=== PATIENT | male | born 1940 | race Caucasian/White ===

== ENCOUNTER 2021-04-04 04:43 | Emergency (ER) | payer OTHER, MEDICARE ==
[~2021-04-04] VITALS: Ht 175.3 cm; Wt 95.0 kg
[2021-04-04] MEDS ORDERED: WALKERFR (05:19)
--- NOTE | 2021-04-04 05:42 | NUR ---
patients son, Thee, would like to be contacted with update when results are back. [phone]
[2021-04-04 06:25] LABS: GLUCOSE,SYNOVIAL FLUID 103 MG/DL; TOTAL PROTEIN,SYNOVIAL FLUID 4.2 GM/DL
[2021-04-04 06:41] LABS: BASOPHILS # (AUTO) 0.1 X10'3 (0-0.2); BASOPHILS % (AUTO) 0.7 % (0-1); EOSINOPHILS # (AUTO) 0.1 X10'3 (0-0.9); EOSINOPHILS % (AUTO) 1.3 % (0-6); HEMATOCRIT 38.9 % (42.0-52.0); HEMOGLOBIN 13.3 g/dl (14.0-17.9); LYMPHOCYTES # (AUTO) 1.1 X10'3 (1.1-4.8); LYMPHOCYTES % (AUTO) 10.9 % (21-51); MEAN CORPUSCULAR HEMOGLOBIN 28.9 PG (27.0-31.0); MEAN CORPUSCULAR HGB CONC 34.1 g/dL (33.0-36.5); MEAN CORPUSCULAR VOLUME 84.8 FL (78-98); MONOCYTES # (AUTO) 1.4 X10'3 (0-0.9); MONOCYTES % (AUTO) 13.7 % (2-12); NEUTROPHILS # (AUTO) 7.5 X10'3 (1.8-7.7); NEUTROPHILS % (AUTO) 73.4 % (42-75); PLATELET COUNT 292 X10'3 (140-440); RED BLOOD COUNT 4.59 X10'6 (4.70-6.10); RED CELL DISTRIBUTION WIDTH 13.6 % (11.5-14.5); WHITE BLOOD COUNT 10.3 X10'3 (4.5-11.0)
[2021-04-04 06:56] LABS: APPEARANCE,SYNOVIAL FLUID CLOUDY; COLOR,SYNOVIAL FLUID YELLOW; LYMPHOCYTES,SYNOVIAL FLUID 6 % (0-75); MONOCYTES,SYNOVIAL FLUID 2 % (0-0); NEUTROPHILS,SYNOVIAL FLUID 92 % (0-25); SYN RBC 400 /CU MM (0); SYN WBC 9950 /CU MM (0-200)
[2021-04-04] MEDS ORDERED: DOXY100C43 PO (08:11)
[2021-04-04] MEDS ORDERED: HYDR-3965 PO (08:11)
[2021-04-04] MEDS ORDERED: HYDROcodone/acetaminophen 5mg/325mg tablet PO ONE (08:20)
[2021-04-04] MEDS ORDERED: dexamethasone sod phosphate 10mg/ml inj PO STA (08:20)
[2021-04-04] MEDS ORDERED: acetaminophen 325mg tablet PO ONE (08:20)
[2021-04-04 09:43] VITALS: BP 139/73
[2021-04-04 09:50] LABS: SYNOVIAL FLUID CRYSTALS QT NO CRYSTALS SEEN
[2021-04-04] MEDS ORDERED: LIDOcaine 1% W/epiNEPHrine 1:200,000 10ml vial IJ ONE (22:50)
== END 2021-04-04 10:08 | disposition home or self-care (01) ==
LOC: ER 04:44
DX: M25.462 Effusion, left knee (principal); M17.12 Unilateral primary osteoarthritis, left knee; M25.562 Pain in left knee; I10 Essential (primary) hypertension; Z98.890 Other specified postprocedural states
CPT/HCPCS: 20610; 36415; 73564; 82945; 83605; 84145; 84157; 85025; 85651; 86140; 87040; 87070; 87075; 89051; 89060; 99284; J1100

== ENCOUNTER 2023-05-24 08:02 | Emergency (ER) | payer OTHER, MEDICARE ==
[~2023-05-24] VITALS: Ht 172.7 cm; Wt 90.9 kg
[~2023-05-24 08:02] MED LIST: WALKERFR
[2023-05-24 08:36] VITALS: BP 166/93; PULSE 69; TEMP 97.7; O2SAT 98
[2023-05-24] MEDS ORDERED: ketorolac trometh inj. 60 MG/2 ML VIAL IM ONE (11:10)
[2023-05-24 11:20] VITALS: RESP 15
[2023-05-24] MEDS ORDERED: CYCL-1 PO (12:49)
[2023-05-24] MEDS ORDERED: PRED20TA PO (12:49)
== END 2023-05-24 13:08 | disposition home or self-care (01) ==
LOC: ER 08:02
DX: S29.012A Strain of muscle and tendon of back wall of thorax, initial encounter (principal); S40.011A Contusion of right shoulder, initial encounter; I10 Essential (primary) hypertension; X58.XXXA Exposure to other specified factors, initial encounter; Y93.89 Activity, other specified; Y92.89 Other specified places as the place of occurrence of the external cause; Y99.8 Other external cause status
CPT/HCPCS: 73000; 96372; 99284; J1885

== ENCOUNTER 2024-06-14 13:50 | Emergency (ER) | payer OTHER, MEDICARE ==
[~2024-06-14] VITALS: Ht 172.7 cm; Wt 72.6 kg
[~2024-06-14 13:50] MED LIST changes: +CYCL-1 PO
[2024-06-14] MEDS ORDERED: BUPR1FIL20 SL (14:59)
[2024-06-14 15:14] VITALS: BP 137/74; PULSE 74; RESP 16; TEMP 97.4; O2SAT 99
== END 2024-06-14 15:15 | disposition home or self-care (01) ==
LOC: ER 13:51
DX: Z76.0 Encounter for issue of repeat prescription (principal); M25.561 Pain in right knee; M25.562 Pain in left knee; F11.23 Opioid dependence with withdrawal; I10 Essential (primary) hypertension; Z79.899 Other long term (current) drug therapy
CPT/HCPCS: 99283

== ENCOUNTER 2024-07-12 13:11 | Emergency (ER) | payer OTHER, MEDICARE ==
[~2024-07-12] VITALS: Ht 175.3 cm; Wt 84.1 kg
[~2024-07-12 13:11] MED LIST changes: +BUPR1FIL20 SL
[2024-07-12 13:26] VITALS: BP 180/75; PULSE 78; RESP 18; TEMP 97.8; O2SAT 98
[2024-07-12] MEDS ORDERED: BUPR8TAB4 SL (14:27)
== END 2024-07-12 14:47 | disposition home or self-care (01) ==
LOC: ER 13:11
DX: F11.23 Opioid dependence with withdrawal (principal); I10 Essential (primary) hypertension; G25.81 Restless legs syndrome; Z79.899 Other long term (current) drug therapy
CPT/HCPCS: 99281; 99283

== ENCOUNTER 2025-05-28 03:55 | Inpatient (IN) | payer OTHER, MEDICARE ==
[~2025-05-28] VITALS: Ht 172.7 cm; Wt 86.0 kg
--- NOTE | 2025-05-28 04:03 | Physician Documentation ---
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 No obvious trigger provocation. It has a multiple falls throughout the last two months. But has not fallen lately. No palliating factors other than position of comfort. Denies any other symptoms whatsoever. Called the ambulance because he has not been able to ambulate for 18 hours. No concern for tobacco, alcohol or illicit substances use Medication Reconciliation Allergies: Coded Allergies: No Known Allergies (Unverified , 04/04/21) Scheduled Buprenorphine HCl/Naloxone HCl (Buprenorphine-Nalox 8-2Mg Film), 1 STRIP SL Q8H Scheduled PRN Cyclobenzaprine* (Cyclobenzaprine*), 1 TAB PO TID PRN for pain Durable Medical Equipment Walker, Front Wheeled (Walker, Front-wheeled), UNIT, (DME) Past Medical History Past Medical History: Hypertension Past Surgical History: orthopedic surgeries Alcohol Use: None Drug Use: none Review of Systems ROS 10 point review of systems was performed and unless noted above in HPI is negative for acute process/complaint. Physical Exam Physical Exam Physical Exam GENERAL: Awake, alert, oriented, GCS 15, no apparent distress, non-toxic appearing, answers questions, follows commands appropriately. Examined in bed 12. Immediately upon arrival. HEENT: Atraumatic, normocephalic, pupils equal, extraocular muscles intact, sclerae anicteric, mucus membranes moist, oropharynx is clear, no stridor. NECK: supple, full active range of motion, trachea midline, no thyromegaly, no lymphadenopathy, no JVD. CARDIOVASCULAR: regular rate/rhythm, no murmurs/gallops/rubs, Pulses are 2+ in all extremities and symmetric. Capillary refill less than 2 seconds. PULMONARY: Nonlabored, good air movement ,no respiratory distress, speaking in full sentences, clear to auscultation bilaterally, no wheezing, no ronchi, no rales, no accessory muscle use. GASTROINTESTINAL: Soft, non-tender, non-distended, normal active bowel sounds, no organomegaly, no pulsatile masses, no CVA tenderness. NEUROLOGIC: Lucid with normal mental status. Normal facial symmetry. Moves all extremities symmetrically and with purpose. No truncal ataxia. Speech is fluid without evidence of dysarthria or aphasia, no focal deficits appreciated. MUSCULOSKELETAL: There is full range of motion of all extremities. There is no joint pain or joint swelling or joint erythema. There is no muscle pain or tenderness or swelling. EXTREMITIES: warm, well-perfused, no cyanosis, no clubbing, no edema, no acute deformities. Skin: warm, dry, no rashes or lesions, no jaundice, no petechiae orpurpura. No ecchymosis. PSYCHIATRIC: Normal affect, normal insight, normal concentration. Focused exam: [] Range of motion not tested secondary to pain. Neurovascularly intact distally to the knee. No gross deformity. No discoloration. Progress Results/Orders Results/Orders Orders - POLO GROSS DO Cbc/Diff (05/28/25 03:57) ESR (05/28/25 03:57) C-Reactive Protein (05/28/25 03:57) MG (05/28/25 03:57) Monitor (05/28/25 03:57) Saline Lock (05/28/25 03:57) Hs Troponin I W Calculations (05/28/25 03:57) CMP (05/28/25 03:57) Knee 3 Vws (05/28/25 ) Completed Orders - POLO GROSS DO Electrocardiogram (05/28/25 03:57) Hydromorphone 1 Mg/Ml/Pf (Dilaudid Inj.) (05/28/25 04:00) Ondansetron Inj. (Zofran 4mg/2ml Vial) (05/28/25 04:00) Vital Signs 05/28/25 05/28/25 04:07 04:13 Pulse 78 72 Resp 18 18 B/P (MAP) 153/83 (106) Pulse Ox 94 94 EKG/XRAY/CT/US/VASC/MRI EKG : Additional Comment EKG was obtained and interpreted by myself shows sinus rhythm of 72, first- degree AV block, wide QRS with a left bundle, borderline QTC of 497, normal axis, no STEMI Medical Decision Making Findings Facility Status: ED Holds, RME process The plan was discussed with the patient, who demonstrates clear understanding of the plan and is in agreement with the plan unless otherwise noted in the chart. All questions have been answered, all concerns were addressed unless otherwise documented. I was available throughout their ED stay for frequent reassessment and questions. Differential Diagnoses (considered and possible or likely): [Right knee arthritis, less likely septic knee, less likely fracture or dislocation, unable to ambulate. Less likely metabolic cause of inability to ambulate. No evidence of lateralizing signs to suspect a stroke.] ??Differential Diagnoses (considered and unlikely, not requiring evaluation currently): [See above] MDM Data Please see [facility] for the following: Independent Historians and external Records Review. Historian: [Patient] Independent Historians: ?[EMS] Medication Management: [Reviewed medication list] Social History and determinants: [Reviewed] Please see the body of the note for the following: Any independent interpretations of ECG, imaging studies. All vitals signs/haemodynamics, ordered tests were independently reviewed and interpreted by myself. Nursing triage complaint and vitals reviewed, additional nursing notes were reviewed as available and I agree unless otherwise noted or documented in contradiction in the chart Vital Signs: Independently reviewed Labs: Independently interpreted Imaging: Independently interpreted Old Medical Records: Independently reviewed, see HPI for relevant summary and information Pulse Oximetry: [95%] interpreted as [normal on room air] by me [Academic Counselor: [Regular Rate, Regular rhythm, no ectopy, NSR] reviewed and interpreted by me] Additionally notably showing: [] Tests considered but not ordered include: [] Social Determinants of Health Impact: Patient was evaluated in [facility], [facility] [place] to healthcare due to below par ratio of patient to medical providers. [] Comorbid Conditions Impacting Present Evaluation and Care/Treatment: [] Management Discussions with other Healthcare Providers: [] Treatment and Disposition Medication Management (Given or considered): []. See EMR for details Consideration for Hospitalization/Escalation/Deescalation of Care: Admission for observation has been considered, [however the patient is able to tolerate p.o., their symptoms are controlled, they are able to rely on oral medications, and their chief complaint/diagnosis can be managed on outpatient basis.] ?ED Course:?[] ?Shared decision making:?[] Code status:?FULL Please see the full Electronic Medical Record for full details of nursing d ocumentation, medications list, other records of complete past medical history and conditions, vital signs, laboratory studies, and any radiologic study interpretations by radiologists. Portions of this note were completed using [employer] dictation software and as a result there may exist minor errors in spelling. I have reviewed elements of past family and social history and agree as included in note. Departure Disposition: 09 ADMITTED INPATIENT Admitted to Inpatient Unit: to hospitalist Impression: Primary Impression: Left knee pain Additional Impression: Unable to ambulate Condition: Improved Referrals: NO PRIMARY CARE PROVIDER (PCP) Signature Scribe Signature: No scribe Attestation: Date: May 28, 2025 Time: 04:03 This note accurately reflects clinical decisions, work performed by myself, Polo Gross, POLO CARR DO May 28, 2025 04:03
--- NOTE | 2025-05-28 04:18 | ELECTROCARDIOGRAPH REPORT ---
[facility] Test Date: 2025-05-28 Test Time: 04:15:29 Pat Name: FARIHA IBRAHIM Department: [facility] Patient ID: [id number] Room: Gender: M Sewer Pipe Layer: : 1940 Requested By: QUAN GROSS Order Number: [id number] Reading MD: Measurements Intervals [place] Rate: 72 P: 49 UT: 220 QRS: 10 QRSD: 168 T: 129 QT: 454 QTc: 497 Interpretive Statements Sinus rhythm Borderline prolonged UT interval Left bundle branch block Baseline wander in lead(s) V6 Please click the below link to view image of tracing.
[2025-05-28] MEDS: ondansetron/PF 4mg/2ml inj IV ONE (04:45)
[2025-05-28] MEDS: magnesium sulf-water 2g/50mL 50 ML IV ONE (04:47)
[2025-05-28 05:34] LABS: MEAN PLATELET VOLUME 7.8 FL (7.4-10.4); RED CELL DISTRIBUTION WIDTH 14.3 % (11.5-14.5)
--- NOTE | 2025-05-28 05:36 | RADIOLOGY REPORT ---
CLINICAL INDICATION: Pain, unable to ambulate TECHNIQUE: DI KNEE 3 VWS Comparison: KNEE, COMP 4 VW MIN on DOS: 04/04/21 FINDINGS/IMPRESSION: : There is no evidence of acute fracture or dislocation. Advanced osteoarthritic related degenerative narrowing the medial and lateral tibiofemoral and patellofemoral compartments with associated osteophytosis. Soft tissues are unremarkable.
[2025-05-28 06:29] LABS: CREATININE 0.97 MG/DL (0.60-1.10); TOTAL CARBON DIOXIDE 31.1 MMOL/L (24-32); eCRCL 54 ML/MIN; eGFR 74 ML/MIN
[2025-05-28] MEDS ORDERED: mag hydrox/Alum hydrox/simeth 30ml oral suspension PO PRN (08:00)
[2025-05-28] MEDS ORDERED: ondansetron/PF 4mg/2ml inj IV PRN (08:00)
[2025-05-28] MEDS ORDERED: HYDROmorphone inj. 0.5 MG/0.5 ML DISP.SYRIN IV PRN (08:00)
[2025-05-28] MEDS ORDERED: potassium Cl 20 mEq SR tablet PO PRN (08:00)
[2025-05-28] MEDS ORDERED: HYDROmorphone/PF 0.2 MG/ML SYRINGE IV PRN (08:00)
[2025-05-28] MEDS ORDERED: magnesium sulf-water 2g/50mL 50 ML IV PRN (08:00)
[2025-05-28] MEDS ORDERED: magnesium sulf-water 4G/100mL 100 ML IV PRN (08:00)
[2025-05-28] MEDS: K and/or MAG REPLACEMENT MC SCH (08:00)
[2025-05-28] MEDS: docusate sod 100mg capsule PO SCH (08:00)
[2025-05-28] MEDS ORDERED: potassium Cl 40MEQ/1/2NS 520ml 520 ML IV PRN (08:00)
[2025-05-28] MEDS ORDERED: OXYC-658 PO (08:32)
[2025-05-28] MEDS: potassium Cl 20 mEq SR tablet PO PRN (08:41)
[2025-05-28] MEDS: HYDROmorphone inj. 0.5 MG/0.5 ML DISP.SYRIN IV PRN (08:41)
[2025-05-28 10:00] VITALS: BP 142/66; PULSE 68; RESP 18; TEMP 97.7; O2SAT 90
--- NOTE | 2025-05-28 10:11 | HISTORY AND PHYSICAL ---
History & Physical Providers to CC ~ History of Present Illness Reason for Admit\Complaint: Severe left knee pain - eval for acute inflammatory arthritis History of Present Illness This is an 84-year-old male who initially injured his knee while parachutting in the . The patient was scheduled to have a left knee arthroplasty 15 years ago however he develops a distal infection and was not able to have the surgery. The patient has noticed that the there has been a significant amount of discomfort over the past couple of days however yesterday this got to the point where he could not get up and go to the bathroom and could not bend his knee and can not ambulate. The patient does have elevated inflammatory markers including a CRP that is 4.94 sed rate that is 42. Advanced osteoarthritis medial and lateral and patellar component- I am completely unable to bend the knee due to discomfort and there is a pretty significant amount of edema around the knee as well however bilateral lower extremities are edematous. I have ordered an MRI and uric acid level as well as I have ordered a one time dose of Solu-Medrol 125 mg IV. Allergies: Coded Allergies: No Known Allergies (Unverified , 04/04/21) Home Medications Home Medications Active Buprenorphine-Nalox 8-2Mg Film (Buprenorphine HCl/Naloxone HCl) 8 Mg-2 Mg Film 1 Strip SL Q8H 30 Days Cyclobenzaprine* (Cyclobenzaprine HCl) 10 Mg Tablet 1 Tab PO TID PRN Walker, Front-wheeled (Device) 1 Each Ea Unit Reported Oxycodone IR* (Oxycodone HCl) 5 Mg Tablet 2 Tab PO Q4H PRN Past Medical History Past Medical History Hypertension Past Surgical History Surgical History Comment Right knee arthroplasty, surgery for right foot ulcer Family History Family History: Patient reports no known family medical history. Past Social History Social History Comment Patient denes history of smoking/ drinking alcohol nor any illicit drug use Full Code Status ROS ROS Except for positives in the HPI the rest of the 14 point review systems is negative Exam Vitals: Vital Signs Date Time Temp Pulse Resp B/P (MAP) Pulse Ox O2 Delivery O2 Flow Rate FiO2 05/28/25 08:41 16 05/28/25 08:00 70 151/77 (101) 99 2.0 General: Gen. No acute distress alert and oriented 4 Lungs clear to ascultation bilaterally, no wheezes rales or rhonchi appreciated Heart normal sinus rhythm no murmurs rubs or clicks noted Abdomen soft nontender bowel sounds are normoactive Lower extremities no clubbing cyanosis, bilateral moderate generalized edema with significant edema of the left knee Diagnostic Data Last Recorded Lab Results: 05/28/25 0526 05/28/25 0535 Advance Care Planning Advanced Care plannin - 30 Minutes Problems: (1) Unable to ambulate Status: Acute Additional Plan # severe left knee pain with significant edema # elevated inflammatory markers CRP and sed rate MRI of the left knee Uric acid level MACEY Rheumatoid factor CCP IGG AB Solu-Medrol 125 mg IV x1 Percocet PRN pain IV Dilaudid PRN pain Physical therapy # hypertension Awaiting med reconciliation Monitor Q shift # hypokalemia Potassium replacement protocol # DVT prophylaxis SQ Lovenox SCDs are contraindicated due to the patient's severe tenderness with very light palpation of the lower extremity I spent a total of 17 minutes on reviewing various resuscitative measures/ ACP with the patient at the time of admission. The patient has decided on full code status Date of Service: May 28, 2025 Billing Provider: ALBANIA ELMORE DO Common Visit Codes: 83554-[id number] INP/OBS CARE (HIGH) Secondary Visit Codes: 82534-[id number] CARE PLAN 30 MINUTES ALBANIA ELMORE DO May 28, 2025 10:11
[2025-05-28 10:56] VITALS: RESP 18; O2SAT 90
[2025-05-28 17:15] VITALS: BP 157/74; PULSE 71; RESP 18; TEMP 97.7; O2SAT 93
[2025-05-28] MEDS: enoxaparin 40mg/0.4ml syringe SQ SCH (19:47)
[2025-05-28 20:00] VITALS: RESP 17; O2SAT 96
[2025-05-28 22:00] VITALS: BP 150/87; PULSE 62; RESP 17; TEMP 98; O2SAT 96
[2025-05-29 05:38] LABS: MEAN PLATELET VOLUME 8.2 FL (7.4-10.4); RED CELL DISTRIBUTION WIDTH 14.4 % (11.5-14.5)
[2025-05-29 06:00] VITALS: BP 162/91; PULSE 76; RESP 16; TEMP 96.8; O2SAT 95
[2025-05-29 06:08] LABS: CREATININE 0.87 MG/DL (0.60-1.10); TOTAL CARBON DIOXIDE 28.5 MMOL/L (24-32); eCRCL 60 ML/MIN; eGFR 83 ML/MIN
[2025-05-29 10:00] VITALS: BP 142/79; PULSE 64; RESP 16; TEMP 97.5; O2SAT 92
--- NOTE | 2025-05-29 10:05 | RADIOLOGY REPORT ---
EXAM: MR MRI LOWER EXTREMITY LEFT knee INDICATION: Severe pain and a edema of left knee with inability to bend knee TECHNIQUE: Multiplanar and multisequence MR imaging of the left ankle was performed in the absence of gadolinium contrast. COMPARISON: None FINDINGS: [ severe degenerative changes with degenerative tear involving the body and anterior horn of the medial meniscus extending into the anterior root of the meniscus. There is medial subluxation of the body of the medial meniscus The lateral meniscus contains internal degenerative changes There is thinning of the hyaline cartilage surfaces of the distal medial femoral condyle and medial tibial plateau with subchondral signal intensity change representing grade 4 chondrosis Posterior cruciate ligament intact. Anterior cruciate ligament not seen presumably torn Edema in the deep fibers of the medial collateral ligament probably due to partial tear or sprain. Lateral collateral ligament intact. Quadriceps and patellar tendons intact. Small joint effusion. There is thinning of the hyaline cartilage surfaces covering the patellofemoral joint with subchondral signal intensity. IMPRESSION: 1. Degenerative tear involving the body and anterior horn of the medial meniscus with grade 4 chondrosis in the overlying medial femoral condyle and underlying medial tibial plateau. Mild sprain of the adjacent deep fibers of the medial collateral ligament 2. Tear of the ACL 3. Grade 4 chondromalacia patella
[2025-05-29] MEDS ORDERED: hydrALAZINE 20mg/ml inj. IV PRN (10:10)
[2025-05-29] MEDS: magnesium hydroxide 30ml (MOM) UD suspension PO PRN (14:23)
[2025-05-29 18:00] VITALS: BP 152/73; PULSE 60; RESP 18; TEMP 97.8; O2SAT 97
[2025-05-29 20:00] VITALS: RESP 18; O2SAT 97
--- NOTE | 2025-05-29 21:26 | PROGRESS NOTE ---
Daily Progress Note Providers to CC ~ Antibiotic Timeout Antibiotic Ordered?: No Subjective The patient's knee pain has improved and did okay with physical therapy anticipate discharge in the a.m. with home health I discussed the MRI results of the patient's left knee with Dr. Polk orthopedic surgeon who stated that the patient we will need a knee replacement Objective Vital Signs Date Time Temp Pulse Resp B/P (MAP) Pulse Ox O2 Delivery O2 Flow Rate FiO2 05/29/25 20:07 16 05/29/25 10:00 97.5 64 142/79 (100) 92 Room Air 05/29/25 08:40 0.0 21 Result Diagram: 05/29/25 0515 05/29/25 0515 Gen. No acute distress alert and oriented 4 Lungs clear to ascultation bilaterally, no wheezes rales or rhonchi appreciated Heart normal sinus rhythm no murmurs rubs or clicks noted Abdomen soft nontender bowel sounds are normoactive Lower extremities no clubbing cyanosis, bilateral moderate generalized edema with significant edema of the left knee Problem\Assessment\Plan Problems/Diagnosis: (1) Unable to ambulate # severe left knee pain with significant edema # elevated inflammatory markers CRP and sed rate MRI of the left knee demonstrates the following findings: 1. Degenerative tear involving the body and anterior horn of the medial meniscus with grade 4 chondrosis in the overlying medial femoral condyle and underlying medial tibial plateau. Mild sprain of the adjacent deep fibers of the medial collateral ligament 2. Tear of the ACL 3. Grade 4 chondromalacia patella Uric acid level is within normal limits MACEY Rheumatoid factor CCP IGG AB Solu-Medrol 125 mg IV x1 Percocet PRN pain IV Dilaudid PRN pain Physical therapy # hypertension Not on any blood pressure medications at home Monitor Q shift # hypokalemia Potassium replacement protocol # DVT prophylaxis SQ Lovenox SCDs are contraindicated due to the patient's severe tenderness with very light palpation of the lower extremity Disposition: Anticipate discharge in the a.m. Date of Service: May 29, 2025 Billing Provider: ALBANIA ELMORE DO Common Visit Codes: [id number] INP/OBS CARE(HIGH) ALBANIA ELMORE DO May 29, 2025 21:26
[2025-05-29 22:00] VITALS: BP 139/74; PULSE 56; RESP 16; TEMP 97.1; O2SAT 97
[2025-05-30 05:48] LABS: MEAN PLATELET VOLUME 8.5 FL (7.4-10.4); RED CELL DISTRIBUTION WIDTH 14.2 % (11.5-14.5)
[2025-05-30 06:00] VITALS: BP 156/74; PULSE 56; RESP 16; TEMP 97.4; O2SAT 95
[2025-05-30 06:10] LABS: CREATININE 0.90 MG/DL (0.60-1.10); TOTAL CARBON DIOXIDE 32.0 MMOL/L (24-32); eCRCL 58 ML/MIN; eGFR 80 ML/MIN
--- NOTE | 2025-05-30 09:06 | CONSULTATION REPORT ---
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 He is seen through the [facility] in his had treatment for the knee including injections. He is on a low-dose oxycodone apparently and occasionally has flare-ups of the knee were requiring medical attention. He is states he was told that he is too old for a knee replacement. There was some suspicion of infection but he has improved since he has been in the hospital Allergies: Coded Allergies: No Known Allergies (Unverified , 04/04/21) Home Medications Home Medications Active Buprenorphine-Nalox 8-2Mg Film (Buprenorphine HCl/Naloxone HCl) 8 Mg-2 Mg Film 1 Strip SL Q8H 30 Days Cyclobenzaprine* (Cyclobenzaprine HCl) 10 Mg Tablet 1 Tab PO TID PRN Walker, Front-wheeled (Device) 1 Each Ea Unit Reported Oxycodone IR* (Oxycodone HCl) 5 Mg Tablet 2 Tab PO Q4H PRN Past Family History Family History: Patient reports no known family medical history. Physical Exam Last Vital Signs Recorded: Temperature: 97.4, Source: Temporal, Heart Rate: 56, Respiratory Rate: 16, BP: 156/74, Pulse Oximetry: 95, Weight: 86.000 General Appearance: alert, no apparent distress Extremities The left knee is slightly enlarged. There is no erythema and there is no irritability he has got good range of motion. There was general tenderness to palpation around the knee joint. He is moving his leg well there is no swelling distally and neurovascular exam is intact. Results Results/Orders Results/Orders X-rays show severe arthritis especially in the medial compartment. There is no evidence of osteomyelitis. Diagram Lab Result Diagram: 05/30/2544705/30/25447 Assessment/Plan Problems/Diagnosis: (1) Degenerative joint disease of left knee Additional Plan He has a flare-up of the severely arthritic knee but no evidence of infection. No surgical intervention is indicated at this time. I discussed this with the patient and he appears to understand. Thank you for this consultation Problem Qualifiers (1) Degenerative joint disease of left knee: Qualified Codes: M17.5 - Other unilateral secondary osteoarthritis of knee GERALD GARLAND Jr., MD May 30, 2025 09:06
--- NOTE | 2025-05-30 23:30 | DISCHARGE SUMMARY ---
Discharge Summary Providers to CC ~ Discharge Summary Admission Diagnosis: Intractable left knee pain with secondary left lower extremity paresis Hospital Course DATE OF ADMISSION: 05/28/2025 DATE OF DISCHARGE: 05/30/2025 Discharge Diagnosis\Comment: Severe osteoarthritis of the left knee, hypertension, hypokalemia Operations\Procedures: None Consultants: Gennaro Polk orthopedic surgeon Complications: None Condition on DC: Stable Continued Medications: Buprenorphine HCl/Naloxone HCl (Buprenorphine-Nalox 8-2Mg Film) 8 Mg-2 Mg Film 1 STRIP SL Q8H for 30 Days, #30 STRIP 0 Refills Cyclobenzaprine* (Cyclobenzaprine*) 10 Mg Tablet 1 TAB PO TID PRN for pain, #15 TAB Oxycodone Hcl IR* (Oxycodone IR*) 5 Mg Tablet 2 TAB PO Q4H PRN for moderate or severe pain, TAB Discharge Summary: I admitted Mr. Sy with the following HPI: This is an 84-year-old male who initially injured his knee while parachutting in the . The patient was scheduled to have a left knee arthroplasty 15 years ago however he develops a distal infection and was not able to have the surgery. The patient has noticed that the there has been a significant amount of discomfort over the past couple of days however yesterday this got to the point where he could not get up and go to the bathroom and could not bend his knee and can not ambulate. The patient does have elevated inflammatory markers including a CRP that is 4.94 sed rate that is 42. Advanced osteoarthritis medial and lateral and patellar component- I am completely unable to bend the knee due to discomfort and there is a pretty significant amount of edema around the knee as well however bilateral lower ex tremities are edematous. I have ordered an MRI and uric acid level as well as I have ordered a one time dose of Solu-Medrol 125 mg IV. The patient has serum uric acid level was 7.0 thus the patient did not have acute gout did have elevated CRP of 5.08 and ESR 53 I did order MACEY and a cyclic Citrul peptide IgG. MRI of the left knee was obtained which demonstrated the following findings: 1. Degenerative tear involving the body and anterior horn of the medial meniscus with grade 4 chondrosis in the overlying medial femoral condyle and underlying medial tibial plateau. Mild sprain of the adjacent deep fibers of the medial collateral ligament 2. Tear of the ACL 3. Grade 4 chondromalacia patella The patient is evaluated by Dr. Gennaro Polk orthopedic surgeon who recommended that the patient had severe osteoarthritis however did not require emergent surgery. The patient has hypertension however is not on any blood pressure medications at home the patient is blood pressure improved during hospitalization we will need to follow up with his primary care provider for further management Gen. No acute distress alert and oriented 4 Lungs clear to ascultation bilaterally, no wheezes rales or rhonchi appreciated Heart normal sinus rhythm no murmurs rubs or clicks noted Abdomen soft nontender bowel sounds are normoactive Lower extremities no clubbing cyanosis, nor edema appreciated bilaterally The patient felt ready to be discharged and was medically cleared to be discharged on 05/30/2025 The patient was seen and evaluated on day of discharge. Time spent on discharge 25 minutes *Problems/Diagnosis: (1) Degenerative joint disease of left knee Status: Acute Total Time Spent on D/C: Up to 30 Minutes Date of Service: May 30, 2025 Billing Provider: ALBANIA ELMORE DO Common Visit Codes: 17731-RIC/OBS DISCH DAY <30MIN Problem Qualifiers (1) Degenerative joint disease of left knee: Qualified Codes: M17.5 - Other unilateral secondary osteoarthritis of knee ALBANIA ELMORE DO May 30, 2025 23:29
[2025-05-31 13:23] LABS: ANTINUCLEAR ANTIBODIES Negative (Negative)
== END 2025-05-30 11:46 | disposition home health service (06) | DRG 554 ==
LOC: ER 03:55 → ED HOLD 08:17 → ORTHO 4S 10:06
PROVIDERS: ADMIT Family Medicine; ATTEND Family Medicine
DX: M17.5 Other unilateral secondary osteoarthritis of knee (principal); I10 Essential (primary) hypertension; E87.6 Hypokalemia; M22.40 Chondromalacia patellae, unspecified knee; S83.512A Sprain of anterior cruciate ligament of left knee, initial encounter; M17.12 Unilateral primary osteoarthritis, left knee; Z87.891 Personal history of nicotine dependence; V97.29XA Other parachutist accident, initial encounter; Y93.39 Activity, other involving climbing, rappelling and jumping off; Y92.89 Other specified places as the place of occurrence of the external cause; Y99.8 Other external cause status
CPT/HCPCS: 36415; 73562; 73721; 80053; 83735; 84484; 84550; 85025; 85651; 86038; 86140; 86200; 87081; 93005; 96365; 96372; 96375; 96376; 97116; 97161; 97530; 99285; A6258; G0378; J1171; J1650; J2405; J2919